=== PATIENT | female | born 1975 | race Caucasian/White ===

== ENCOUNTER 2018-05-22 13:12 | Emergency (ER) | payer OTHER ==
[2018-05-22] MEDS ORDERED: Sodium Chloride 0.9% 2.5 ML Syringe FLUSH PRN (14:55)
[2018-05-22] MEDS ORDERED: Sodium Chloride 0.9% 10 ML Syringe FLUSH PRN (14:55)
[2018-05-22] MEDS ORDERED: Sodium Chloride 0.9% 1,000 ML IV ONE (14:55)
[2018-05-22] MEDS ORDERED: Metoprolol Succinate 50 MG Tab.ER PO ONE (14:59)
--- NOTE | 2018-05-22 15:15 | EDM.PDOC ---
ED HPI GENERAL MEDICAL PROBLEM - General Chief Complaint: Cardiovascular Problem Stated Complaint: BLOOD PRESURE HIGH AND HYPER TENSION Time Seen by Provider: 05/22/18 15:00 Source of Information: Reports: Patient History Limitations: Reports: No Limitations - History of Present Illness INITIAL COMMENTS - FREE TEXT/NARRATIVE: HISTORY AND PHYSICAL: History of present illness: Patient is a 42-year-old female here with complaint of hypertension and headache. He states her blood pressure is about 1 6100 last night and seems morning. His headache is secondary to her blood pressure. She does have a history of migraines and takes Maxalt for these. She is on beta mazin for both her blood pressure and migraine prevention. She reports she was recently switched from atenolol to metoprolol or Dr. Fulton. Patient states headache is on the right side and throbbing. She has photophobia and nausea but denies vomiting, visual disturbances, weakness, confusion, ataxia, fevers, chills. She denies chest pain/pressure, shortness of breath, left arm or jaw pain, diaphoresis, abdominal pain, diarrhea, constipation, or urinary symptoms. Review of systems: As per history of present illness and below otherwise all systems reviewed and negative. Past medical history: As per history of present illness and as reviewed below otherwise noncontributory. Surgical history: As per history of present illness and as reviewed below otherwise noncontributory. Social history: No reported history of drug or alcohol abuse. Family history: As per history of present illness and as reviewed below otherwise noncontributory. Physical exam: General: Patient sitting comfortably in no acute distress and nontoxic appearing HEENT: Atraumatic, normocephalic, pupils reactive, negative for conjunctival pallor or scleral icterus, mucous membranes moist, throat clear, neck supple, nontender, trachea midline. No meningeal signs. Lungs: Clear to auscultation, breath sounds equal bilaterally, chest nontender. Heart: S1S2, regular, negative for clicks, rubs, or overt murmur. Abdomen: Soft, nondistended, nontender. Negative for masses or hepatosplenomegaly. Negative for costovertebral tenderness. Pelvis: Stable nontender. Genitourinary: Deferred. Rectal: Deferred. Extremities: Atraumatic, negative for cords or calf pain. Neurovascular unremarkable. Neuro: Awake, alert, oriented. Cranial nerves II through XII unremarkable. Cerebellum unremarkable. Motor and sensory unremarkable throughout. Exam nonfocal. Notes: 1650 - Patient reports headache 09/03. Diagnostics: None Therapeutics: 1L NS IV 30mg Toradol IV 10mg Reglan IV 4mg Zofran IV 25mg Benadryl IV Metoprolol 50mg PO Prescriptions: None Impression: Hypertension, Migraine Plan: 1. Take regular medications as prescribed 2. Follow up with your primary care provider 3. Return to ED as needed as discussed Definitive disposition and diagnosis as appropriate pending reevaluation and review of above. Head Pain Score (Numeric/FACES): 6 - Related Data Allergies Allergy/AdvReac Type Severity Reaction Status Date / Time ceftazidime pentahydrate Allergy Rash Verified 05/22/18 13:46 [From Fortaz] phenytoin sodium Allergy Rash Verified 05/22/18 13:46 [From Dilantin] phenytoin sodium extended Allergy Rash Verified 05/22/18 13:46 [From Dilantin] sertraline HCl [From Zoloft] Allergy Rash Verified 05/22/18 13:46 Home Meds: Home Meds Levothyroxine [Synthroid] 88 mcg PO ACBREAKFAST 05/04/15 [History] PARoxetine [Paxil] 10 mg PO DAILY 05/04/15 [History] Fenofibrate,Micronized [Fenofibrate] 1 cap PO DAILY 12/15/15 [History] Topiramate [Trokendi Xr] 1 tab PO DAILY 12/15/15 [History] Metoprolol Succinate 50 mg PO DAILY 05/22/18 [History] Norethindrone [Aygestin] 15 mg PO DAILY 05/22/18 [History] Potassium Chloride 10 meq PO DAILY 05/22/18 [History] atorvaSTATin [Lipitor] 20 mg PO DAILY 05/22/18 [History] Past Medical History HEENT History: Reports: Allergic Rhinitis, Hard of Hearing, Impaired Vision Other HEENT History: wears glasses, hearing aids Cardiovascular History: Reports: Arrhythmia, Hypertension Other Cardiovascular History: had intermittent tachycardia following brain surgery, takes blood pressure meds to control it. Respiratory History: Reports: None Gastrointestinal History: Reports: None Genitourinary History: Reports: Renal Calculus NEUROPHYSIOLOGY TECH History: Reports: Musculoskeletal History: Reports: Fibromyalgia, Other (See Below) Other Musculoskeletal History: had FB(glass) removed from foot Neurological History: Reports: Migraines, Other (See Below) Other Neuro History: Brain tumor-meningioma Psychiatric History: Reports: Anxiety, Depression Endocrine/Metabolic History: Reports: Hypothyroidism, Obesity/BMI 30+ Hematologic History: Reports: None Immunologic History: Reports: None Oncologic (Cancer) History: Reports: None Dermatologic History: Reports: None - Infectious Disease History Infectious Disease History: Reports: Chicken Pox, Influenza - Past Surgical History Head Surgeries/Procedures: Reports: None HEENT Surgical History: Reports: Adenoidectomy, Tonsillectomy, Other (See Below) Other HEENT Surgeries/Procedures: ear surgery Cardiovascular Surgical History: Reports: None Respiratory Surgical History: Reports: None GI Surgical History: Reports: Appendectomy, Cholecystectomy Endocrine Surgical History: Reports: None Oncologic Surgical History: Reports: None Social & Family History - Tobacco Use Smoking Status *Q: Never Smoker - Caffeine Use Caffeine Use: Reports: Coffee, Soda, Tea - Recreational Drug Use Recreational Drug Use: No ED ROS GENERAL - Review of Systems Review Of Systems: ROS reveals no pertinent complaints other than HPI. ED EXAM, GENERAL - Physical Exam Exam: See Below (see dictation) Course - Vital Signs Last Recorded V/S: Last Vital Signs Temp 37.0 C 05/22/18 13:41 Pulse 74 05/22/18 15:17 Resp 22 H 05/22/18 13:41 BP 165/84 H 05/22/18 16:07 Pulse Ox 98 05/22/18 13:41 - Orders/Labs/Meds Orders: Active Orders 24 hr Category Date Time Status EKG Documentation Completion [RC] STAT Care 05/22/18 14:55 Active Sodium Chloride 0.9% [Saline Flush] Med 05/22/18 14:55 Active 10 ml FLUSH ASDIRECTED PRN Sodium Chloride 0.9% [Saline Flush] Med 05/22/18 14:55 Active 2.5 ml FLUSH ASDIRECTED PRN Saline Lock Insert [OM.PC] Stat Oth 05/22/18 14:55 Ordered Medication Orders Sodium Chloride (Saline Flush) 10 ml FLUSH ASDIRECTED PRN PRN Reason: Keep Vein Open Last Admin: 05/22/18 15:17 Dose: 10 ml Sodium Chloride (Saline Flush) 2.5 ml FLUSH ASDIRECTED PRN PRN Reason: Keep Vein Open Last Admin: 05/22/18 15:17 Dose: 2.5 ml Labs: Laboratory Tests 05/22/18 05/22/18 Range/Units 15:14 15:14 WBC 9.54 (4.0-11.0) K/uL RBC 5.00 (4.30-5.90) M/uL Hgb 15.1 (12.0-16.0) g/dL Hct 44.9 (36.0-46.0) % MCV 89.8 (80.0-98.0) fL MCH 30.2 (27.0-32.0) pg MCHC 33.6 (31.0-37.0) g/dL RDW Std Deviation 45.3 (28.0-62.0) fl RDW Coeff of Queenie 14 (11.0-15.0) % Plt Count 224 (150-400) K/uL MPV 11.90 (7.40-12.00) fL Neut % (Auto) 53.4 (48.0-80.0) % Lymph % (Auto) 34.0 (16.0-40.0) % Wetzel % (Auto) 10.5 (0.0-15.0) % Eos % (Auto) 1.8 (0.0-7.0) % Baso % (Auto) 0.3 (0.0-1.5) % Neut # (Auto) 5.1 (1.4-5.7) K/uL Lymph # (Auto) 3.2 H (0.6-2.4) K/uL Wetzel # (Auto) 1.0 H (0.0-0.8) K/uL Eos # (Auto) 0.2 (0.0-0.7) K/uL Baso # (Auto) 0.0 (0.0-0.1) K/uL Nucleated RBC % 0.0 /100WBC Nucleated RBCs # 0 K/uL Sodium 141 (136-145) mmol/L Potassium 3.2 L (3.5-5.1) mmol/L Chloride 109 H (98-107) mmol/L Carbon Dioxide 23.0 (21.0-32.0) mmol/L BUN 16 (7.0-18.0) mg/dL Creatinine 1.0 (0.6-1.0) mg/dL Est Cr Clr Drug Dosing 60.00 mL/min Estimated GFR (MDRD) > 60.0 ml/min Glucose 95 (74-106) mg/dL Calcium 9.9 (8.5-10.1) mg/dL Total Bilirubin 0.1 L (0.2-1.0) mg/dL AST 35 (15-37) IU/L ALT 34 (14-63) IU/L Alkaline Phosphatase 41 L (46-116) U/L Troponin I < 0.050 (0.000-0.056) ng/mL Total Protein 7.6 (6.4-8.2) g/dL Albumin 3.7 (3.4-5.0) g/dL Globulin 3.9 H (2.0-3.5) g/dL Albumin/Globulin Ratio 1.0 L (1.3-2.8) Meds: Medications Generic Name Dose Route Start Last Admin Trade Name Freq PRN Reason Stop Dose Admin Sodium Chloride 10 ml 05/22/18 14:55 05/22/18 15:17 Saline Flush FLUSH 10 ml ASDIRECTED PRN Administration Keep Vein Open Sodium Chloride 2.5 ml 05/22/18 14:55 05/22/18 15:17 Saline Flush FLUSH 2.5 ml ASDIRECTED PRN Administration Keep Vein Open Discontinued Medications Generic Name Dose Route Start Last Admin Trade Name Freq PRN Reason Stop Dose Admin Diphenhydramine HCl 25 mg 05/22/18 16:13 05/22/18 16:28 Benadryl IVPUSH 05/22/18 16:14 25 mg ONETIME ONE Administration Sodium Chloride 1,000 mls @ 999 mls/hr 05/22/18 14:55 05/22/18 15:16 Normal Saline IV 05/22/18 15:55 999 mls/hr STAT ONE Administration Ketorolac Tromethamine 30 mg 05/22/18 16:13 05/22/18 16:28 Toradol IVPUSH 05/22/18 16:14 30 mg ONETIME ONE Administration Metoclopramide HCl 10 mg 05/22/18 16:13 05/22/18 16:28 Reglan IV 05/22/18 16:14 10 mg ONETIME ONE Administration Metoprolol Succinate 50 mg 05/22/18 14:59 05/22/18 15:17 Toprol Xl PO 05/22/18 15:00 50 mg ONETIME ONE Administration Ondansetron HCl 4 mg 05/22/18 16:13 05/22/18 16:29 Zofran IVPUSH 05/22/18 16:14 4 mg ONETIME ONE Administration Departure - Departure Time of Disposition: 16:57 Disposition: Home, Self-Care 01 Clinical Impression: Hypertension, Migraine aura without headache Referrals: PCP,None [Primary Care Provider] - Forms: ED Department Discharge Additional Instructions: The following information is given to patients seen in the emergency department who are being discharged to home. This information is to outline your options for follow-up care. We provide all patients seen in our emergency department with a follow-up referral. The need for follow-up, as well as the timing and circumstances, are variable depending upon the specifics of your emergency department visit. If you don't have a primary care physician on staff, we will provide you with a referral. We always advise you to contact your personal physician following an emergency department visit to inform them of the circumstance of the visit and for follow-up with them and/or the need for any referrals to a consulting specialist. The emergency department will also refer you to a specialist when appropriate. This referral assures that you have the opportunity for follow-up care with a specialist. All of these measure are taken in an effort to provide you with optimal care, which includes your follow-up. Under all circumstances we always encourage you to contact your private physician who remains a resource for coordinating your care. When calling for follow-up care, please make the office aware that this follow-up is from your recent emergency room visit. If for any reason you are refused follow-up, please contact the [facility] Emergency Department at and asked to speak to the emergency department charge nurse. [facility] [address] [place] [id number] 1. Take medications as directed 2. Follow up with primary care provider 3. Return to ED as needed as discussed - My Orders Last 24 Hours: My Active Orders 05/22/18 14:55 EKG Documentation Completion [RC] STAT Sodium Chloride 0.9% [Saline Flush] 10 ml FLUSH ASDIRECTED PRN Sodium Chloride 0.9% [Saline Flush] 2.5 ml FLUSH ASDIRECTED PRN Saline Lock Insert [OM.PC] Stat - Assessment/Plan Last 24 Hours: My Active Orders 05/22/18 14:55 EKG Documentation Completion [RC] STAT Sodium Chloride 0.9% [Saline Flush] 10 ml FLUSH ASDIRECTED PRN Sodium Chloride 0.9% [Saline Flush] 2.5 ml FLUSH ASDIRECTED PRN Saline Lock Insert [OM.PC] Stat
[2018-05-22 16:00] LABS: CHLORIDE,CL 109 mmol/L (98-107); SODIUM,NA 141 mmol/L (136-145)
[2018-05-22] MEDS ORDERED: Ketorolac 30 MG/ML SDV IVPUSH ONE (16:13)
[2018-05-22] MEDS ORDERED: diphenhydrAMINE 50 MG/ML SDV IVPUSH ONE (16:13)
[2018-05-22] MEDS ORDERED: Ondansetron 4 MG/2 ML SDV IVPUSH ONE (16:13)
[2018-05-22] MEDS ORDERED: Metoclopramide 10 MG/2 ML SDV IV ONE (16:13)
[2018-05-22 17:15] VITALS: BP 159/101
== END 2018-05-22 17:15 | disposition home or self-care (01) ==
LOC: MW.ED 13:12
DX: G43.109 Migraine with aura, not intractable, without status migrainosus (principal); I10 Essential (primary) hypertension; E03.9 Hypothyroidism, unspecified; E66.9 Obesity, unspecified; Z88.8 Allergy status to other drugs, medicaments and biological substances; Z79.899 Other long term (current) drug therapy
CPT/HCPCS: 36415; 80053; 84484; 85025; 93005; 96361; 96374; 96375; 99283; A9270; J1200; J1885; J2405; J2765; J7040

== ENCOUNTER 2020-12-15 06:06 | Day surgery (SDC) | payer OTHER ==
[2020-12-15 06:50] LABS: CARBON DIOXIDE,CO2 22.9 mmol/L (21.0-32.0); POTASSIUM,K 4.2 mmol/L (3.5-5.1)
--- NOTE | 2020-12-15 07:14 | PCM.PREANE ---
Preanesthetic Assessment - Anesthesia/Transfusion/Family Hx Anesthesia History: Prior Anesthesia Without Reaction Family History of Anesthesia Reaction: No Transfusion History: No Prior Transfusion(s) - Review of Systems General: No Symptoms Pulmonary: No Symptoms Cardiovascular: No Symptoms Gastrointestinal: No Symptoms Neurological: No Symptoms Other: Reports: None - Physical Assessment NPO Status Date: 12/15/20 NPO Status Time: 00:01 Vital Signs: Last Vital Signs Temp 98.4 F 12/15/20 06:24 Pulse 67 12/15/20 06:24 Resp 16 12/15/20 06:24 BP 120/71 12/15/20 06:24 Pulse Ox 96 12/15/20 06:24 Height: 5 ft 4 in Weight: 231 lb ASA Class: 2 Mental Status: Alert & Oriented x3 Airway Class: Mallampati = 2 Dentition: Reports: Normal Dentition ROM/Head Extension: Full Lungs: Clear to Auscultation, Normal Respiratory Effort Cardiovascular: Regular Rate, Regular Rhythm - Lab Values: Laboratory Last Values Sodium 143 mmol/L (136-145) 12/15/20 06:24 Potassium 4.2 mmol/L (3.5-5.1) 12/15/20 06:24 Chloride 108 mmol/L (98-107) H 12/15/20 06:24 Carbon Dioxide 22.9 mmol/L (21.0-32.0) 12/15/20 06:24 BUN 15 mg/dL (7.0-18.0) 12/15/20 06:24 Creatinine 1.0 mg/dL (0.6-1.0) 12/15/20 06:24 Est Cr Clr Drug Dosing 60.70 mL/min 12/15/20 06:24 Estimated GFR (MDRD) 59.7 ml/min 12/15/20 06:24 Glucose 106 mg/dL (74-106) 12/15/20 06:24 Calcium 9.0 mg/dL (8.5-10.1) 12/15/20 06:24 HCG, Qual NEGATIVE (NEG) 12/15/20 06:24 - Allergies Allergies/Adverse Reactions: Allergies Allergy/AdvReac Type Severity Reaction Status Date / Time ceftazidime pentahydrate Allergy Rash Verified 12/15/20 06:32 [From Fortaz] phenytoin sodium Allergy Rash Verified 04/23/21 06:32 [From Dilantin] phenytoin sodium extended Allergy Rash Verified 12/15/20 06:32 [From Dilantin] sertraline HCl [From Zoloft] Allergy Rash Verified 12/15/20 06:32 - Anesthesia Plan Pre-Op Medication Ordered: None - Acknowledgements Anesthesia Type Planned: General Anesthesia Pt an Appropriate Candidate for the Planned Anesthesia: Yes Alternatives and Risks of Anesthesia Discussed w Pt/Guardian: Yes Pt/Guardian Understands and Agrees with Anesthesia Plan: Yes Additional Comments: npo after mn htn no cv problems asthma rarely uses inhalers depression headaches tob none etoh rare 25 years ago resection L sided meningioma without residual par no questions PreAnesthesia Questionnaire HEENT History: Reports: Allergic Rhinitis, Hard of Hearing, Impaired Vision Other HEENT History: wears glasses, hearing aids Cardiovascular History: Reports: Arrhythmia, High Cholesterol, Hypertension Other Cardiovascular History: had intermittent tachycardia following brain surgery, takes blood pressure meds to control it. Respiratory History: Reports: Asthma Other Respiratory History: has prescribed inhaler to use as needed, but has not used in over 6 months Gastrointestinal History: Reports: None Genitourinary History: Reports: Renal Calculus ROUGE SIFTER History: Reports: Dysfunctional Uterine Bleeding, Musculoskeletal History: Reports: Fibromyalgia, Other (See Below) Other Musculoskeletal History: had FB(glass) removed from foot, Neurological History: Reports: Migraines, Other (See Below) Other Neuro History: Brain tumor-meningioma Psychiatric History: Reports: Anxiety, Depression Endocrine/Metabolic History: Reports: Hypothyroidism, Obesity/BMI 30+ Hematologic History: Reports: None Immunologic History: Reports: None Oncologic (Cancer) History: Reports: None Dermatologic History: Reports: None - Infectious Disease History Infectious Disease History: Reports: Chicken Pox, Influenza - Past Surgical History Head Surgeries/Procedures: Reports: Other (See Below) HEENT Surgical History: Reports: Adenoidectomy, Oral Surgery, Tonsillectomy, Other (See Below) Other HEENT Surgeries/Procedures: ear surgery Cardiovascular Surgical History: Reports: None Respiratory Surgical History: Reports: None GI Surgical History: Reports: Appendectomy, Cholecystectomy Female Surgical History: Reports: Tubal Ligation, Other (See Below) Other Female Surgeries/Procedures: LAPROSCOPY Endocrine Surgical History: Reports: None Neurological Surgical History: Reports: Other (See Below) Other Neurological Surgeries/Procedures: removal of brain tumor (non-malignant) Musculoskeletal Surgical History: Reports: Other (See Below) Other Musculoskeletal Surgeries/Procedures:: excision of ganglion cyst Oncologic Surgical History: Reports: None - SUBSTANCE USE Tobacco Use Status *Q: Never Tobacco User Recreational Drug Use History: No - HOME MEDS Home Medications: Home Meds Levothyroxine [Synthroid] 88 mcg PO BEDTIME 05/04/15 [History] PARoxetine [Paxil] 20 mg PO BEDTIME 05/04/15 [History] Fenofibrate,Micronized [Fenofibrate] 160 mg PO BEDTIME 12/15/15 [History] Topiramate [Trokendi Xr] 100 mg PO BEDTIME 12/15/15 [History] Metoprolol Succinate 100 mg PO BEDTIME 05/22/18 [History] Norethindrone [Aygestin] 10 mg PO BEDTIME 05/22/18 [History] atorvaSTATin [Lipitor] 20 mg PO BEDTIME 05/22/18 [History] Fluticasone/Salmeterol [Advair 100-50] 1 inhalation INH DAILY PRN 12/12/20 [History] Gabapentin [Neurontin] 600 mg PO BEDTIME 12/12/20 [History] amLODIPine [Norvasc] 5 mg PO BEDTIME 12/12/20 [History] medroxyPROGESTERone [Provera] 10 mg PO BEDTIME 12/12/20 [History]
[2020-12-15] MEDS ORDERED: Propofol 200 MG/20 ML SDV ONE ×2 (07:42→08:12)
[2020-12-15] MEDS ORDERED: fentaNYL 100 MCG/2 ML SDV ONE ×2 (07:42→08:18)
[2020-12-15] MEDS ORDERED: Ondansetron 4 MG/2 ML SDV ONE (07:42)
[2020-12-15] MEDS ORDERED: Midazolam 1 MG/ML 2 ML SDV ONE (07:42)
[2020-12-15] MEDS ORDERED: Dexamethasone 4 MG/ML 5 ML MDV ONE (07:43)
[2020-12-15] MEDS ORDERED: Glycopyrrolate 0.2 MG/ML SDV ONE (07:43)
--- NOTE | 2020-12-15 09:03 | PCM.POSTAN ---
POST ANESTHESIA ASSESSMENT - MENTAL STATUS Mental Status: Alert (no anesthetic problems), Oriented - VITAL SIGNS Vital Signs: Last Vital Signs Temp 98.6 F 12/15/20 08:47 Pulse 62 12/15/20 08:57 Resp 11 L 12/15/20 08:57 BP 134/80 12/15/20 08:57 Pulse Ox 99 12/15/20 08:57 - RESPIRATORY Respiratory Status: Respiratory Rate WNL, Airway Patent, O2 Saturation Stable - CARDIOVASCULAR CV Status: Pulse Rate WNL, Blood Pressure Stable - GASTROINTESTINAL GI Status: No Symptoms - POST OP HYDRATION Hydration Status: Adequate & Stable
[2020-12-15] MEDS ORDERED: Morphine 4 MG/ML Syringe IVPUSH PRN (09:17)
[2020-12-15] MEDS ORDERED: Ondansetron 4 MG/2 ML SDV IVPUSH PRN (09:17)
[2020-12-15] MEDS ORDERED: Ketorolac 30 MG/ML SDV IVPUSH ONE (09:17)
[2020-12-15] MEDS ORDERED: Acetaminophen/oxyCODONE 325-5 MG Tab PO PRN ×2 (09:17)
[2020-12-15] MEDS ORDERED: Promethazine 25 MG/ML SDV IM PRN (09:17)
--- NOTE | 2020-12-15 09:23 | PCM.OPNOTE ---
- General Post-Op/Procedure Note Date of Surgery/Procedure: 12/15/20 Operative Procedure(s): Operative Hysteroscopy with removal of endometrial lesion Findings: Normal sized anteverted uterus Uterus with small endometrial lesion toward to the right of the cornua Pre Op Diagnosis: Abnormal uterine bleeding secondary to endometrial polyp Post-Op Diagnosis: same Anesthesia Technique: General ET Tube Primary Surgeon: Mary Ellen Fields Pathology: endometrial lesion EBL in mLs: 10 Complications: None Condition: Good Free Text/Narrative:: Intake & Output 12/14/20 12/15/20 12/15/20 22:59 06:59 14:59 Intake Total 1050 Balance 1050 Fluid deficit - 400
--- NOTE | 2020-12-15 09:34 | PCM48HPAN ---
Post Anesthesia Note - EVALUATION WITHIN 48HRS OF ANESTHETIC Vital Signs in Normal Range: Yes Patient Participated in Evaluation: Yes Respiratory Function Stable: Yes Airway Patent: Yes Cardiovascular Function Stable: Yes Hydration Status Stable: Yes Pain Control Satisfactory: Yes Nausea and Vomiting Control Satisfactory: Yes Mental Status Recovered: Yes Vital Signs: Last Vital Signs Temp 97.3 F 12/15/20 09:05 Pulse 62 12/15/20 09:20 Resp 16 12/15/20 09:20 BP 124/70 12/15/20 09:20 Pulse Ox 97 12/15/20 09:20
[2020-12-15 09:37] VITALS: BP 125/72; PULSE 55
[2020-12-15] MEDS ORDERED: Ketorolac 30 MG/ML SDV IVPUSH PRN (15:15)
--- NOTE | 2020-12-18 11:23 | OR ---
SURGEON: LARRY SOW DATE OF PROCEDURE: 12/15/2020 PREOPERATIVE DIAGNOSES: A 45-year-old para 3 with abnormal uterine bleeding secondary to endometrial polyp. POSTOPERATIVE DIAGNOSES: A 45-year-old para 3 with abnormal uterine bleeding secondary to endometrial polyp. PROCEDURE: Operative hysteroscopy with MyoSure and removal of endometrial polyp. PATHOLOGY: Endometrial lesion. ANESTHESIA: General. FLUID DEFICIT: 400 NS INTRAVENOUS FLUIDS: 900. COMPLICATIONS: None. ESTIMATED BLOOD LOSS: About 10 mL. NOTES AND FINDINGS: Examination under anesthesia showed a normal-sized anteverted uterus. Hysteroscopy showed 1-2 cm endometrial polyp in the uterine cavity BRIEF HISTORY ABOUT THE PATIENT: She is a 45-year-old, para 3 who was referred for abnormal uterine bleeding. She had an EMB done, which was negative, but patient had been having prolonged heavy periods. As a result, a saline ultrasound was done, which showed some projection into the endometrial cavity suggestive of an endometrial polyp. As a result of this a hysteroscopic removal of endometrial polyp was recommended. She was explained the risk , benefit and alternative.The patient was consented for hysteroscopic removal of the endometrial lesion. DESCRIPTION OF PROCEDURE: The patient was taken to the operating room where general anesthesia was performed without difficulty. She was prepared and draped in the dorsal lithotomy position with Giovanni stirrups. The cervix was properly prepped with betadine. The speculum was placed into the cervix. The Allis clamp was used to grasp the anterior lip of the cervix. The cervix was dilated to accommodate the 10 mm MyoSure hysteroscope. The hysteroscope was placed in. The lesion was noted in the fundal region close to the tubal ostia, and this was removed with MyoSure hysteroscope without any difficulty after which the MyoSure hysteroscope was withdrawn. A fractional D and C was done with a sharp curette and specimen was sent for pathology. The patient tolerated the procedure well. All instrument and pad counts were correct x2. DIEGO / OLIVIA /[id number] MTDD
== END 2020-12-15 09:58 | disposition home or self-care (01) ==
LOC: MW.SDS 06:06
PROVIDERS: ATTEND Obstetrics & Gynecology
DX: N84.0 Polyp of corpus uteri (principal); E03.9 Hypothyroidism, unspecified; E78.00 Pure hypercholesterolemia, unspecified; I10 Essential (primary) hypertension; E66.9 Obesity, unspecified; J45.909 Unspecified asthma, uncomplicated; Z79.890 Hormone replacement therapy; Z90.49 Acquired absence of other specified parts of digestive tract; Z82.49 Family history of ischemic heart disease and other diseases of the circulatory system; Z88.8 Allergy status to other drugs, medicaments and biological substances; Z01.812 Encounter for preprocedural laboratory examination; Z20.822 Contact with and (suspected) exposure to COVID-19; Z79.899 Other long term (current) drug therapy; Z68.39 Body mass index [BMI] 39.0-39.9, adult
CPT/HCPCS: 36415; 58558; 80048; 84703; 87635; 88305; J0131; J1100; J2250; J2704; J3010; J3490; 00952; J2405; U0002

== ENCOUNTER 2021-03-09 06:43 | Day surgery (SDC) | payer OTHER ==
[2021-03-09] MEDS ORDERED: Scopolamine 1.5 MG Transdermal Patch ONE (06:56)
[2021-03-09] MEDS ORDERED: fentaNYL 250 MCG/5 ML SDV ONE (07:04)
[2021-03-09] MEDS ORDERED: Propofol 200 MG/20 ML SDV ONE (07:04)
[2021-03-09] MEDS ORDERED: Midazolam 1 MG/ML 2 ML SDV ONE (07:04)
[2021-03-09] MEDS ORDERED: Ondansetron 4 MG/2 ML SDV ONE (07:05)
[2021-03-09] MEDS ORDERED: Sugammadex Sodium 200 MG/2 ML VIAL ONE (07:05)
[2021-03-09] MEDS ORDERED: Ketorolac 30 MG/ML SDV ONE (07:05)
[2021-03-09] MEDS ORDERED: Glycopyrrolate 0.2 MG/ML SDV ONE (07:05)
[2021-03-09] MEDS ORDERED: Lidocaine 2% 5 ML SDV ONE (07:05)
[2021-03-09] MEDS ORDERED: Rocuronium Bromide 50 MG/5 ML Syringe ONE ×2 (07:05→08:32)
[2021-03-09] MEDS ORDERED: Fluorescein 5 ML Vial ONE (07:19)
[2021-03-09] MEDS ORDERED: Methylene Blue 50 MG/10 ML Ampule ONE (07:20)
[2021-03-09] MEDS ORDERED: Bupivacaine 0.25% 10 ML SDV ONE (07:20)
[2021-03-09] MEDS ORDERED: ceFAZolin 1 GM Vial ONE (07:38)
[2021-03-09] MEDS ORDERED: Sodium Chloride 0.9% 20 ML ONE (07:38)
[2021-03-09] MEDS ORDERED: Vasopressin 20 Units/1 ML MDV ONE (08:15)
[2021-03-09] MEDS ORDERED: Furosemide 40 MG/4 ML VIAL ONE (08:19)
[2021-03-09] MEDS ORDERED: HYDROmorphone 2 MG/ML Syringe ONE (09:03)
[2021-03-09] MEDS ORDERED: Morphine 2 MG/ML SYRINGE IVPUSH PRN (09:37)
[2021-03-09] MEDS ORDERED: Naloxone 0.4 MG/ML Syringe IVPUSH PRN (09:37)
[2021-03-09] MEDS ORDERED: fentaNYL 100 MCG/2 ML SDV IVPUSH PRN (09:37)
[2021-03-09] MEDS ORDERED: Ondansetron 4 MG/2 ML SDV IVPUSH PRN ×2 (09:37→11:38)
[2021-03-09] MEDS ORDERED: Metoclopramide 10 MG/2 ML SDV IVPUSH PRN (09:37)
[2021-03-09] MEDS ORDERED: HYDROmorphone 2 MG/ML Syringe IVPUSH PRN (09:37)
[2021-03-09] MEDS ORDERED: Albuterol 0.083% 2.5 MG/3 ML Neb Soln NEB PRN (09:37)
[2021-03-09] MEDS ORDERED: Acetaminophen 1,000 MG in Premix Bag 1 BAG IV ONE (09:38)
--- NOTE | 2021-03-09 09:40 | PCM.PREANE ---
Preanesthetic Assessment - Anesthesia/Transfusion/Family Hx Anesthesia History: Prior Anesthesia Without Reaction Transfusion History: No Prior Transfusion(s) - Review of Systems General: No Symptoms Pulmonary: No Symptoms Cardiovascular: No Symptoms Gastrointestinal: No Symptoms Neurological: No Symptoms Other: Reports: None - Physical Assessment NPO Status Date: 03/09/21 NPO Status Time: 00:00 Vital Signs: Last Vital Signs Temp 97.3 F 03/09/21 06:56 Pulse 60 03/09/21 06:56 Resp 16 03/09/21 06:56 BP 117/72 03/09/21 06:56 Pulse Ox 95 03/09/21 06:56 Height: 5 ft 3.5 in Weight: 220 lb ASA Class: 3 Mental Status: Alert & Oriented x3 Airway Class: Mallampati = 2 Dentition: Reports: Normal Dentition Thyro-Mental Finger Breadths: 3 Mouth Opening Finger Breadths: 3 ROM/Head Extension: Full Lungs: Clear to Auscultation, Normal Respiratory Effort Cardiovascular: Regular Rate, Regular Rhythm - Lab Values: Laboratory Last Values WBC 5.59 K/uL (4.0-11.0) 03/09/21 06:56 RBC 4.86 M/uL (4.30-5.90) 03/09/21 06:56 Hgb 13.0 g/dL (12.0-16.0) 03/09/21 06:56 Hct 40.9 % (36.0-46.0) 03/09/21 06:56 MCV 84.2 fL (80.0-98.0) 03/09/21 06:56 MCH 26.7 pg (27.0-32.0) L 03/09/21 06:56 MCHC 31.8 g/dL (31.0-37.0) 03/09/21 06:56 RDW Std Deviation 44.3 fl (28.0-62.0) 03/09/21 06:56 RDW Coeff of [place] 15 % (11.0-15.0) 03/09/21 06:56 Plt Count 253 K/uL (150-400) 03/09/21 06:56 MPV 11.60 fL (7.40-12.00) 03/09/21 06:56 Neut % (Auto) 54.8 % (48.0-80.0) 03/09/21 06:56 Lymph % (Auto) 32.7 % (16.0-40.0) 03/09/21 06:56 [place] % (Auto) 8.8 % (0.0-15.0) 03/09/21 06:56 Eos % (Auto) 3.2 % (0.0-7.0) 03/09/21 06:56 Baso % (Auto) 0.5 % (0.0-1.5) 03/09/21 06:56 Neut # (Auto) 3.1 K/uL (1.4-5.7) 03/09/21 06:56 Lymph # (Auto) 1.8 K/uL (0.6-2.4) 03/09/21 06:56 [place] # (Auto) 0.5 K/uL (0.0-0.8) 03/09/21 06:56 Eos # (Auto) 0.2 K/uL (0.0-0.7) 03/09/21 06:56 Baso # (Auto) 0.0 K/uL (0.0-0.1) 03/09/21 06:56 Nucleated RBC % 0.0 /100WBC 03/09/21 06:56 Nucleated RBCs # 0 K/uL 03/09/21 06:56 HCG, Qual NEGATIVE (NEG) 03/09/21 06:56 - Allergies Allergies/Adverse Reactions: Allergies Allergy/AdvReac Type Severity Reaction Status Date / Time ceftazidime pentahydrate Allergy Rash Verified 03/09/21 07:02 [From Fortaz] phenytoin sodium Allergy Rash Verified 03/09/21 07:02 [From Dilantin] phenytoin sodium extended Allergy Rash Verified 03/09/21 07:02 [From Dilantin] sertraline HCl [From Zoloft] Allergy Rash Verified 03/09/21 07:02 - Acknowledgements Anesthesia Type Planned: General Anesthesia Pt an Appropriate Candidate for the Planned Anesthesia: Yes Alternatives and Risks of Anesthesia Discussed w Pt/Guardian: Yes Pt/Guardian Understands and Agrees with Anesthesia Plan: Yes PreAnesthesia Questionnaire HEENT History: Reports: Allergic Rhinitis, Hard of Hearing, Impaired Vision Other HEENT History: wears glasses, hearing aids Cardiovascular History: Reports: Arrhythmia, High Cholesterol, Hypertension Other Cardiovascular History: had intermittent tachycardia following brain surgery, takes blood pressure meds to control it. Respiratory History: Reports: Asthma Other Respiratory History: has prescribed inhaler to use as needed, but has not used in over 6 months Gastrointestinal History: Reports: None Genitourinary History: Reports: Renal Calculus Other Genitourinary History: hx of passing kidney stone during [employer] History: Reports: Dysfunctional Uterine Bleeding, Musculoskeletal History: Reports: Fibromyalgia, Other (See Below) Other Musculoskeletal History: had FB(glass) removed from foot, Neurological History: Reports: Migraines, Other (See Below) Other Neuro History: Brain tumor-meningioma Psychiatric History: Reports: Anxiety Endocrine/Metabolic History: Reports: Hypothyroidism, Obesity/BMI 30+ Hematologic History: Reports: None Immunologic History: Reports: None Oncologic (Cancer) History: Reports: None Dermatologic History: Reports: None - Infectious Disease History Infectious Disease History: Reports: Chicken Pox, Influenza - Past Surgical History Head Surgeries/Procedures: Reports: Other (See Below) HEENT Surgical History: Reports: Adenoidectomy, Oral Surgery, Tonsillectomy, Other (See Below) Other HEENT Surgeries/Procedures: ear surgery Cardiovascular Surgical History: Reports: None Respiratory Surgical History: Reports: None GI Surgical History: Reports: Appendectomy, Cholecystectomy Female Surgical History: Reports: Tubal Ligation, Other (See Below) Other Female Surgeries/Procedures: LAPROSCOPY, Hysteroscopy with polyp removal Endocrine Surgical History: Reports: None Neurological Surgical History: Reports: Other (See Below) Other Neurological Surgeries/Procedures: removal of brain tumor (non-malignant)- has screws in skull Musculoskeletal Surgical History: Reports: Ganglion Cyst Oncologic Surgical History: Reports: None - SUBSTANCE USE Tobacco Use Status *Q: Never Tobacco User Recreational Drug Use History: No - HOME MEDS Home Medications: Home Meds Levothyroxine [Synthroid] 88 mcg PO BEDTIME 05/04/15 [History] PARoxetine [Paxil] 20 mg PO BEDTIME 05/04/15 [History] Topiramate [Trokendi Xr] 100 mg PO BEDTIME 12/15/15 [History] Metoprolol Succinate 100 mg PO BEDTIME 05/22/18 [History] Norethindrone [Aygestin] 10 mg PO BEDTIME 05/22/18 [History] atorvaSTATin [Lipitor] 20 mg PO BEDTIME 05/22/18 [History] Fluticasone/Salmeterol [Advair 100-50] 1 inhalation INH DAILY PRN 12/12/20 [History] Gabapentin [Neurontin] 600 mg PO BEDTIME 12/12/20 [History] amLODIPine [Norvasc] 5 mg PO BEDTIME 12/12/20 [History] medroxyPROGESTERone [Provera] 10 mg PO BEDTIME 12/12/20 [History] - CURRENT (IN HOUSE) MEDS Current Meds: Current Medications Albuterol (Albuterol 0.083% 2.5 Mg/3 Ml Neb Soln) 2.5 mg NEB ONETIME PRN PRN Reason: Wheezing Droperidol (Droperidol 5 Mg/2 Ml Sdv) 0.625 mg IVPUSH ONETIME PRN PRN Reason: Nausea/Vomiting Fentanyl (Fentanyl 100 Mcg/2 Ml Sdv) 50 mcg IVPUSH Q5M PRN PRN Reason: Pain (mild 1-3) Hydromorphone HCl (Hydromorphone 2 Mg/Ml Syringe) 1 mg IVPUSH Q10M PRN PRN Reason: Pain (moderate 4-6) Acetaminophen 1,000 mg/ Premix 100 mls @ 400 mls/hr IV NOW ONE Stop: 03/09/21 09:52 Metoclopramide HCl (Metoclopramide 10 Mg/2 Ml Sdv) 10 mg IVPUSH ONETIME PRN PRN Reason: Nausea/Vomiting Morphine Sulfate (Morphine 10 Mg/Ml Syringe) 2 mg IVPUSH Q10M PRN PRN Reason: Pain (severe 7-10) Naloxone HCl (Naloxone 0.4 Mg/Ml Syringe) 0.1 mg IVPUSH ASDIRECTED PRN PRN Reason: Respiratory Depression Ondansetron HCl (Ondansetron 4 Mg/2 Ml Sdv) 4 mg IVPUSH ONETIME PRN PRN Reason: Nausea/Vomiting Discontinued Medications Bupivacaine HCl (Bupivacaine 0.25% 10 Ml Sdv) Confirm Administered Dose 20 ml .ROUTE .ST[facility]-MED ONE Stop: 03/09/21 07:21 Cefazolin Sodium (Cefazolin 1 Gm Vial) Confirm Administered Dose 2 gm .ROUTE .STK-MED ONE Stop: 03/09/21 07:39 Fentanyl (Fentanyl 250 Mcg/5 Ml Sdv) Confirm Administered Dose 250 mcg .ROUTE .STK-MED ONE Stop: 03/09/21 07:05 Fluorescein Sodium (Fluorescein 5 Ml Vial) Confirm Administered Dose 5 ml .ROUTE .[facility] ONE Stop: 03/09/21 07:20 Furosemide (Furosemide 40 Mg/4 Ml Vial) Confirm Administered Dose 40 mg .ROUTE .[facility] ONE Stop: 03/09/21 08:20 Glycopyrrolate (Glycopyrrolate 0.2 Mg/Ml Sdv) Confirm Administered Dose 0.2 mg .ROUTE .[facility] ONE Stop: 03/09/21 07:06 Hydromorphone HCl (Hydromorphone 2 Mg/Ml Syringe) Confirm Administered Dose 2 mg .ROUTE .[facility] ONE Stop: 03/09/21 09:04 Sodium Chloride (Normal Saline) Confirm Administered Dose 20 mls @ as directed .ROUTE .[facility] ONE Stop: 03/09/21 07:39 Ketorolac Tromethamine (Ketorolac 30 Mg/Ml Sdv) Confirm Administered Dose 30 mg .ROUTE .[facility] ONE Stop: 03/09/21 07:06 Lidocaine (Lidocaine 2% 5 Ml Sdv) Confirm Administered Dose 5 ml .ROUTE .[facility] ONE Stop: 03/09/21 07:06 Methylene Blue (Methylene Blue 50 Mg/10 Ml Ampule) Confirm Administered Dose 50 mg .ROUTE .[facility] ONE Stop: 03/09/21 07:21 Midazolam HCl (Midazolam 1 Mg/Ml 2 Ml Sdv) Confirm Administered Dose 2 mg .ROUTE .[facility] ONE Stop: 03/09/21 07:05 Miscellaneous Medication (Phenylephrine Hcl In 0.9% Nacl 1 Mg/10 Ml Syringe) Confirm Administered Dose 1 mg .ROUTE .[facility] ONE Stop: 03/09/21 08:10 Ondansetron HCl (Ondansetron 4 Mg/2 Ml Sdv) Confirm Administered Dose 4 mg .ROUTE .[facility] ONE Stop: 03/09/21 07:06 Propofol (Propofol 200 Mg/20 Ml Sdv) Confirm Administered Dose 200 mg .ROUTE .[facility] ONE Stop: 03/09/21 07:05 Rocuronium [place] (Rocuronium [place] 50 Mg/5 Ml Syringe) Confirm Administered Dose 50 mg .ROUTE .[facility] ONE Stop: 03/09/21 07:06 Rocuronium [place] (Rocuronium [place] 50 Mg/5 Ml Syringe) Confirm Administered Dose 50 mg .ROUTE .STK-MED ONE Stop: 03/09/21 08:33 Scopolamine (Scopolamine 1.5 Mg Transdermal Patch) Confirm Administered Dose 1.5 mg .ROUTE .STK-MED ONE Stop: 03/09/21 06:57 Sugammadex Sodium (Sugammadex Sodium 200 Mg/2 Ml Vial) Confirm Administered Dose 200 mg .ROUTE .STK-MED ONE Stop: 03/09/21 07:06 Vasopressin (Vasopressin 20 Units/1 Ml Mdv) Confirm Administered Dose 20 units .ROUTE .STK-MED ONE Stop: 03/09/21 08:16
--- NOTE | 2021-03-09 11:28 | PCM.POSTAN ---
POST ANESTHESIA ASSESSMENT - MENTAL STATUS Mental Status: Somnolent - VITAL SIGNS Vital Signs: Last Vital Signs Temp 97.3 F 03/09/21 06:56 Pulse 60 03/09/21 06:56 Resp 16 03/09/21 06:56 BP 117/72 03/09/21 06:56 Pulse Ox 95 03/09/21 06:56 - RESPIRATORY Respiratory Status: Respiratory Rate WNL, Airway Patent, O2 Saturation Stable - CARDIOVASCULAR CV Status: Pulse Rate WNL, Blood Pressure Stable - GASTROINTESTINAL GI Status: No Symptoms - POST OP HYDRATION Hydration Status: Adequate & Stable
--- NOTE | 2021-03-09 11:28 | PCM48HPAN ---
Post Anesthesia Note - EVALUATION WITHIN 48HRS OF ANESTHETIC Vital Signs in Normal Range: Yes Patient Participated in Evaluation: Yes Respiratory Function Stable: Yes Airway Patent: Yes Cardiovascular Function Stable: Yes Hydration Status Stable: Yes Pain Control Satisfactory: Yes Nausea and Vomiting Control Satisfactory: Yes Mental Status Recovered: Yes Vital Signs: Last Vital Signs Temp 97.3 F 03/09/21 06:56 Pulse 60 03/09/21 06:56 Resp 16 03/09/21 06:56 BP 117/72 03/09/21 06:56 Pulse Ox 95 03/09/21 06:56
[2021-03-09] MEDS ORDERED: Ketorolac 30 MG/ML SDV IVPUSH ONE (11:38)
[2021-03-09] MEDS ORDERED: Morphine 4 MG/ML Syringe IVPUSH PRN (11:38)
[2021-03-09] MEDS ORDERED: Acetaminophen/oxyCODONE 325-5 MG Tab PO PRN (11:38)
[2021-03-09] MEDS ORDERED: Promethazine 25 MG/ML SDV IM PRN (11:38)
[2021-03-09] MEDS ORDERED: Dextrose 5%-0.45% NaCl 1,000 ML IV SCH (11:45)
--- NOTE | 2021-03-09 11:58 | PCM.OPNOTE ---
- General Post-Op/Procedure Note Date of Surgery/Procedure: 03/09/21 Operative Procedure(s): Laparoscopic assisted vaginal hysterectomy. Bilateral salphingectomy. Cystoscopy Findings: Normal sized anteverted uterus Normal appearing right ovary , left ovary with 2 cm simple cyst Very tiny endometriotic deposit in the cul-de-sac Pre Op Diagnosis: 45yo P3 with abnormal uterine bleeding. Chronic pelvic pain Post-Op Diagnosis: same. Scant Endometriosis Anesthesia Technique: General ET Tube Primary Surgeon: Mary Ellen Fields Secondary Surgeon: Casey Walton Anesthesia Provider: Jeronimo Concepcion Pathology: Uterus and bilateral tubes Fluid Replacement, Intraop: 3,000 Output, Urine Amount: 700 EBL in mLs: 200 Complications: None Condition: Good
[2021-03-09] MEDS ORDERED: Belladonna Alkaloids/Opium 16.2-30 MG Supp RECTAL ONE (13:00)
[2021-03-09] MEDS: Acetaminophen/oxyCODONE 325-5 MG Tab PO PRN ×2 (13:02→20:42)
[2021-03-09] MEDS: Ketorolac 30 MG/ML SDV IVPUSH PRN ×2 (14:17→22:57)
[2021-03-09] MEDS: Metoclopramide 10 MG/2 ML SDV IVPUSH SCH ×2 (14:18→22:36)
[2021-03-09] MEDS ORDERED: Gabapentin 300 MG Cap PO ONE (21:00)
[2021-03-10 08:31] LABS: BLOOD UREA NITROGEN,BUN 8 mg/dL (7.0-18.0); CARBON DIOXIDE,CO2 30.1 mmol/L (21.0-32.0); CHLORIDE,CL 106 mmol/L (98-107); GLUCOSE RANDOM 89 mg/dL (74-106); POTASSIUM,K 3.9 mmol/L (3.5-5.1); SODIUM,NA 143 mmol/L (136-145)
[2021-03-10 09:11] VITALS: BP 112/62; PULSE 66
[2021-03-10] MEDS: Acetaminophen/oxyCODONE 325-5 MG Tab PO PRN (09:22)
[2021-03-10] MEDS ORDERED: Enoxaparin 40 MG/0.4 ML Syringe SUBCUT ONE (10:30)
--- NOTE | 2021-03-10 10:49 | PCM.SURGPN ---
- General Info Date of Service: 03/10/21 Date of Surgery/Procedure: 03/16/21 POD#: 1 Post-Op Diagnosis: Abnormal Uterine Bleeding. Endometriosis Functional Status: Reports: Pain Controlled, Tolerating Diet, Ambulating, Urinating - Review of Systems General: Reports: No Symptoms HEENT: Reports: No Symptoms Pulmonary: Reports: No Symptoms Cardiovascular: Reports: No Symptoms Gastrointestinal: Reports: No Symptoms Genitourinary: Reports: No Symptoms Musculoskeletal: Reports: No Symptoms Skin: Reports: No Symptoms Neurological: Reports: No Symptoms Psychiatric: Reports: No Symptoms - Patient Data Vitals - Most Recent: Last Vital Signs Temp 36.3 C 03/10/21 08:00 Pulse 66 03/10/21 08:00 Resp 16 03/10/21 08:00 BP 112/62 03/10/21 08:00 Pulse Ox 94 L 03/10/21 08:00 Weight - Most Recent: 99.79 kg I&O - Last 24 Hours: Intake & Output 03/09/21 03/10/21 03/10/21 22:59 06:59 14:59 Intake Total 450 1200 Output Total 350 1700 Balance 100 -500 Lab Results Last 24 Hrs: Laboratory Results - last 24 hr 03/10/21 03/10/21 Range/Units 07:49 07:49 WBC 8.10 (4.0-11.0) K/uL RBC 4.07 L (4.30-5.90) M/uL Hgb 11.0 L (12.0-16.0) g/dL Hct 34.4 L (36.0-46.0) % MCV 84.5 (80.0-98.0) fL MCH 27.0 (27.0-32.0) pg MCHC 32.0 (31.0-37.0) g/dL RDW Std Deviation 45.0 (28.0-62.0) fl RDW Coeff of Queenie 15 (11.0-15.0) % Plt Count 194 (150-400) K/uL MPV 11.10 (7.40-12.00) fL Neut % (Auto) 69.3 (48.0-80.0) % Lymph % (Auto) 21.4 (16.0-40.0) % [place] % (Auto) 8.1 (0.0-15.0) % Eos % (Auto) 1.1 (0.0-7.0) % Baso % (Auto) 0.1 (0.0-1.5) % Neut # (Auto) 5.6 (1.4-5.7) K/uL Lymph # (Auto) 1.7 (0.6-2.4) K/uL [place] # (Auto) 0.7 (0.0-0.8) K/uL Eos # (Auto) 0.1 (0.0-0.7) K/uL Baso # (Auto) 0.0 (0.0-0.1) K/uL Nucleated RBC % 0.0 /100WBC Nucleated RBCs # 0 K/uL Sodium 143 (136-145) mmol/L Potassium 3.9 (3.5-5.1) mmol/L Chloride 106 (98-107) mmol/L Carbon Dioxide 30.1 (21.0-32.0) mmol/L BUN 8 (7.0-18.0) mg/dL Creatinine 0.8 (0.6-1.0) mg/dL Est Cr Clr Drug Dosing 74.28 mL/min Estimated GFR (MDRD) > 60.0 ml/min Glucose 89 (74-106) mg/dL Calcium 8.3 L (8.5-10.1) mg/dL Med Orders - Current: Current Medications Dextrose/Sodium Chloride (Dextrose 5%-1/2 Ns) 1,000 mls @ 125 mls/hr IV ASDIRECTED [facility] Last Infusion: 03/09/21 22:42 Dose: Infused Documented by: Ketorolac Tromethamine (Ketorolac 30 Mg/Ml Sdv) 30 mg IVPUSH Q6H PRN PRN Reason: Pain (severe 7-10) Stop: 03/14/21 11:39 Last Admin: 03/09/21 22:57 Dose: 30 mg Documented by: Morphine Sulfate (Morphine 4 Mg/Ml Syringe) 4 mg IVPUSH Q2H PRN PRN Reason: Pain (severe 7-10) Last Admin: 03/09/21 16:38 Dose: 4 mg Documented by: Ondansetron HCl (Ondansetron 4 Mg/2 Ml Sdv) 4 mg IVPUSH Q6H PRN PRN Reason: Nausea/Vomiting Last Admin: 03/09/21 13:38 Dose: 4 mg Documented by: Oxycodone/Acetaminophen (Acetaminophen/Oxycodone 325-5 Mg Tab) 1 tab PO Q4H PRN PRN Reason: Pain (moderate 4-6) Last Admin: 03/10/21 09:22 Dose: 1 tab Documented by: Oxycodone/Acetaminophen (Acetaminophen/Oxycodone 325-5 Mg Tab) 2 tab PO Q4H PRN PRN Reason: Pain (moderate 4-6) Promethazine HCl (Promethazine 25 Mg/Ml Sdv) 25 mg IM Q6H PRN PRN Reason: Nausea/Vomiting Discontinued Medications Albuterol (Albuterol 0.083% 2.5 Mg/3 Ml Neb Soln) 2.5 mg NEB ONETIME PRN PRN Reason: Wheezing Belladonna Alkaloids/Opium (Belladonna Alkaloids/Opium 16.2-30 Mg Supp) 1 supp RECTAL ONETIME ONE Stop: 03/09/21 13:01 Last Admin: 03/09/21 13:36 Dose: Not Given Documented by: Bupivacaine HCl (Bupivacaine 0.25% 10 Ml Sdv) Confirm Administered Dose 20 ml .ROUTE .STK-MED ONE Stop: 03/09/21 07:21 Cefazolin Sodium (Cefazolin 1 Gm Vial) Confirm Administered Dose 2 gm .ROUTE .STK-MED ONE Stop: 03/09/21 07:39 Droperidol (Droperidol 5 Mg/2 Ml Sdv) 0.625 mg IVPUSH ONETIME PRN PRN Reason: Nausea/Vomiting Enoxaparin Sodium (Enoxaparin 40 Mg/0.4 Ml Syringe) 40 mg SUBCUT ONETIME ONE Stop: 03/10/21 10:31 Fentanyl (Fentanyl 250 Mcg/5 Ml Sdv) Confirm Administered Dose 250 mcg .ROUTE .STK-MED ONE Stop: 03/09/21 07:05 Fentanyl (Fentanyl 100 Mcg/2 Ml Sdv) 50 mcg IVPUSH Q5M PRN PRN Reason: Pain (mild 1-3) Last Admin: 03/09/21 12:02 Dose: 50 mcg Documented by: Fluorescein Sodium (Fluorescein 5 Ml Vial) Confirm Administered Dose 5 ml .ROUTE .STK-MED ONE Stop: 03/09/21 07:20 Furosemide (Furosemide 40 Mg/4 Ml Vial) Confirm Administered Dose 40 mg .ROUTE .STK-MED ONE Stop: 03/09/21 08:20 Gabapentin (Gabapentin 300 Mg Cap) 300 mg PO ONETIME ONE Stop: 03/09/21 21:01 Last Admin: 03/09/21 20:20 Dose: 300 mg Documented by: Glycopyrrolate (Glycopyrrolate 0.2 Mg/Ml Sdv) Confirm Administered Dose 0.2 mg .ROUTE .STK-MED ONE Stop: 03/09/21 07:06 Hydromorphone HCl (Hydromorphone 2 Mg/Ml Syringe) Confirm Administered Dose 2 mg .ROUTE .STK-MED ONE Stop: 03/09/21 09:04 Hydromorphone HCl (Hydromorphone 2 Mg/Ml Syringe) 1 mg IVPUSH Q10M PRN PRN Reason: Pain (moderate 4-6) Sodium Chloride (Normal Saline) Confirm Administered Dose 20 mls @ as directed .ROUTE .STK-MED ONE Stop: 03/09/21 07:39 Acetaminophen 1,000 mg/ Premix 100 mls @ 400 mls/hr IV NOW ONE Stop: 03/09/21 09:52 Last Admin: 03/09/21 11:57 Dose: 400 mls/hr Documented by: Ketorolac Tromethamine (Ketorolac 30 Mg/Ml Sdv) Confirm Administered Dose 30 mg .ROUTE .STK-MED ONE Stop: 03/09/21 07:06 Ketorolac Tromethamine (Ketorolac 30 Mg/Ml Sdv) 30 mg IVPUSH ONETIME ONE Stop: 03/09/21 11:39 Last Admin: 03/09/21 12:30 Dose: Not Given Documented by: Lidocaine (Lidocaine 2% 5 Ml Sdv) Confirm Administered Dose 5 ml .ROUTE .STK-MED ONE Stop: 03/09/21 07:06 Methylene Blue (Methylene Blue 50 Mg/10 Ml Ampule) Confirm Administered Dose 50 mg .ROUTE .STK-MED ONE Stop: 03/09/21 07:21 Metoclopramide HCl (Metoclopramide 10 Mg/2 Ml Sdv) 10 mg IVPUSH ONETIME PRN PRN Reason: Nausea/Vomiting Metoclopramide HCl (Metoclopramide 10 Mg/2 Ml Sdv) 10 mg IVPUSH Q8H [facility] Stop: 03/09/21 22:01 Last Admin: 03/09/21 22:36 Dose: 10 mg Documented by: Midazolam HCl (Midazolam 1 Mg/Ml 2 Ml Sdv) Confirm Administered Dose 2 mg .ROUTE .STK-MED ONE Stop: 03/09/21 07:05 Miscellaneous Medication (Phenylephrine Hcl In 0.9% Nacl 1 Mg/10 Ml Syringe) Confirm Administered Dose 1 mg .ROUTE .[employer] ONE Stop: 03/09/21 08:10 Morphine Sulfate (Morphine 2 Mg/Ml Syringe) 2 mg IVPUSH Q10M PRN PRN Reason: Pain (severe 7-10) Naloxone HCl (Naloxone 0.4 Mg/Ml Syringe) 0.1 mg IVPUSH ASDIRECTED PRN PRN Reason: Respiratory Depression Ondansetron HCl (Ondansetron 4 Mg/2 Ml Sdv) Confirm Administered Dose 4 mg .ROUTE .[employer] ONE Stop: 03/09/21 07:06 Ondansetron HCl (Ondansetron 4 Mg/2 Ml Sdv) 4 mg IVPUSH ONETIME PRN PRN Reason: Nausea/Vomiting Propofol (Propofol 200 Mg/20 Ml Sdv) Confirm Administered Dose 200 mg .ROUTE .[employer] ONE Stop: 03/09/21 07:05 Rocuronium [place] (Rocuronium [place] 50 Mg/5 Ml Syringe) Confirm Administered Dose 50 mg .ROUTE .[employer] ONE Stop: 03/09/21 07:06 Rocuronium [place] (Rocuronium [place] 50 Mg/5 Ml Syringe) Confirm Administered Dose 50 mg .ROUTE .[employer] ONE Stop: 03/09/21 08:33 Scopolamine (Scopolamine 1.5 Mg Transdermal Patch) Confirm Administered Dose 1.5 mg .ROUTE .[employer] ONE Stop: 03/09/21 06:57 Last Admin: 03/09/21 12:30 Dose: Not Given Documented by: Sugammadex Sodium (Sugammadex Sodium 200 Mg/2 Ml Vial) Confirm Administered Dose 200 mg .ROUTE .[employer] ONE Stop: 03/09/21 07:06 Vasopressin (Vasopressin 20 Units/1 Ml Mdv) Confirm Administered Dose 20 units .ROUTE .[employer] ONE Stop: 03/09/21 08:16 - Exam Wound/Incisions: Dressing Dry and Intact General: Alert Neck: Supple Lungs: Clear to Auscultation Cardiovascular: Regular Rate, Regular Rhythm GI/Abdominal Exam: Normal Bowel Sounds Extremities: Normal Inspection Neurological: No New Focal Deficit Sepsis Event Note - Evaluation Sepsis Screening Result: No Definite Risk - Focused Exam Vital Signs: Vital Signs Temp Pulse Resp BP Pulse Ox 03/10/21 08:00 36.3 C 66 16 112/62 94 L 03/10/21 04:30 36.8 C 67 19 105/63 93 L 03/09/21 23:09 37 C 78 18 115/67 94 L - Problem List & Annotations (1) Status post hysterectomy SNOMED Code(s): 904292034, 929375465, 031264428 Code(s): Z90.710 - ACQUIRED ABSENCE OF BOTH CERVIX AND UTERUS Status: Acute Current Visit: Yes - Problem List Review Problem List Initiated/Reviewed/Updated: Yes - My Orders Last 24 Hours: Active Orders 24 hr Category Date Time Status Patient Status [ADT] Routine ADT 03/09/21 11:39 Active Antiembolic Devices [RC] PER UNIT ROUTINE Care 03/09/21 11:41 Active Notify Provider Intake and Out [RC] ASDIRECTED Care 03/09/21 11:39 Active Notify Provider Vital Signs [RC] ASDIRECTED Care 03/09/21 11:39 Active RT Incentive Spirometry [RC] Q2HWA Care 03/09/21 11:39 Active Ready for Discharge [RC] PER UNIT ROUTINE Care 03/10/21 10:41 Ordered Up With Assistance [RC] PER UNIT ROUTINE Care 03/09/21 11:39 Active Up ad Tiffanie [RC] PER UNIT ROUTINE Care 03/09/21 11:39 Active Urinary Catheter Removal [RC] Per Unit Routine Care 03/09/21 11:39 Active Vital Signs [RC] PER UNIT ROUTINE Care 03/09/21 11:39 Active Regular Diet [DIET] Diet 03/09/21 Dinner Active Acetaminophen/oxyCODONE [Percocet 325-5 MG] Med 03/09/21 11:38 Active 1 tab PO Q4H PRN Acetaminophen/oxyCODONE [Percocet 325-5 MG] Med 03/09/21 11:38 Active 2 tab PO Q4H PRN Dextrose 5%-0.45% NaCl [Dextrose 5%-1/2 NS] 1,000 ml Med 03/09/21 11:45 Active IV ASDIRECTED Ketorolac [Toradol] Med 03/09/21 11:38 Active 30 mg IVPUSH Q6H PRN Morphine Med 03/09/21 11:38 Active 4 mg IVPUSH Q2H PRN Ondansetron [Zofran] Med 03/09/21 11:38 Active 4 mg IVPUSH Q6H PRN Promethazine [Phenergan] Med 03/09/21 11:38 Active 25 mg IM Q6H PRN Peripheral IV Discontinue [OM.PC] Routine Oth 03/09/21 11:39 Ordered Sequential Compression Device [OM.PC] Per Unit Routine Oth 03/09/21 11:39 Ordered Resuscitation Status Routine Resus Stat 03/09/21 11:38 Ordered Medication Orders Dextrose/Sodium Chloride (Dextrose 5%-1/2 Ns) 1,000 mls @ 125 mls/hr IV ASDIRECTED [facility] Last Infusion: 03/09/21 22:42 Dose: 125 mls/hr Documented by: Admin: 03/09/21 12:25 Dose: 125 mls/hr Documented by: JUAN DANIEL Ketorolac Tromethamine (Ketorolac 30 Mg/Ml Sdv) 30 mg IVPUSH Q6H PRN PRN Reason: Pain (severe 7-10) Stop: 03/14/21 11:39 Last Admin: 03/09/21 22:57 Dose: 30 mg Documented by: Admin: 03/09/21 14:17 Dose: 30 mg Documented by: CHERY Morphine Sulfate (Morphine 4 Mg/Ml Syringe) 4 mg IVPUSH Q2H PRN PRN Reason: Pain (severe 7-10) Last Admin: 03/09/21 16:38 Dose: 4 mg Documented by: CHERY Ondansetron HCl (Ondansetron 4 Mg/2 Ml Sdv) 4 mg IVPUSH Q6H PRN PRN Reason: Nausea/Vomiting Last Admin: 03/09/21 13:38 Dose: 4 mg Documented by: JUAN DANIEL Oxycodone/Acetaminophen (Acetaminophen/Oxycodone 325-5 Mg Tab) 1 tab PO Q4H PRN PRN Reason: Pain (moderate 4-6) Last Admin: 03/10/21 09:22 Dose: 1 tab Documented by: Admin: 03/09/21 20:42 Dose: 1 tab Documented by: Admin: 03/09/21 13:02 Dose: 1 tab Documented by: JUAN DANIEL Oxycodone/Acetaminophen (Acetaminophen/Oxycodone 325-5 Mg Tab) 2 tab PO Q4H PRN PRN Reason: Pain (moderate 4-6) Promethazine HCl (Promethazine 25 Mg/Ml Sdv) 25 mg IM Q6H PRN PRN Reason: Nausea/Vomiting - Assessment Assessment (Free Text/Narrative):: 45yo P3 s/p LAVH/BS with aspiration of left ovarian cyst , POD1 She denies any complains , she has voided 3 times, ambulating , voiding and tolerating regular diet U/O : 1700 in 12hrs Labs CBC: 8< 11/34>194 Cr 0.8 She had good pain control - Plan Plan (Free Text/Narrative):: Discharge home today Nothing in vagina for 6 weeks No heavy lifting Incentive spirometry Pain control as needed Lovenox 40mg X 1 dose
--- NOTE | 2021-03-11 12:24 | OR ---
SURGEON: LARRY SOW DATE OF PROCEDURE: 03/10/2021 PREOPERATIVE DIAGNOSES: A 45-year-old para 3 with abnormal uterine bleeding and chronic pelvic pain. POSTOPERATIVE DIAGNOSES: Abnormal uterine bleeding and endometriosis. ESTIMATED BLOOD LOSS: 200. INTRAVENOUS FLUIDS: 3000. URINE OUTPUT: 700. PROCEDURES: 1. Laparoscopic-assisted vaginal hysterectomy. 2. Bilateral salpingectomy. 3. Aspiration of left ovarian cyst. ANESTHESIA: General. BOTTLE SELECTOR: Dr. Walton. COMPLICATIONS: None. NOTES AND FINDINGS: Normal-sized anteverted uterus. Normal-appearing right ovary. Left ovary with 2 cm simple cyst. Very tiny endometriotic deposits noted in the cul-de-sac. Pathology was uterus and bilateral tubes. To note, the bilateral tubes with evidence of tubal ligation done. BRIEF HISTORY ABOUT THE PATIENT: She is a 45-year-old para 3 who was seen because of abnormal uterine bleeding. Initially, she had a saline ultrasound done, which showed an endometrial polyp. She was taken to the operating room. Endometrial polyp was removed. However, the patient was still complaining of heavy bleeding after which at this point she desired definitive treatment for abnormal bleeding. She complained about left-sided pelvic pain, which was constant and she wanted to know the cause of her left pelvic pain. As a result, she was consented for laparoscopic-assisted vaginal hysterectomy and bilateral salpingectomy and all other indicated procedures. She was explained the risks, benefits, and alternatives and she wished to proceed. DESCRIPTION OF PROCEDURE: The patient was taken to the operating room where she was placed in the dorsal lithotomy position with Giovanni stirrups. She was prepared and draped in the normal sterile fashion. A Epps catheter was placed. A speculum was used to expose the cervix after being prepped, and the anterior lip of the cervix was clamped with Allis clamps. The cervix was dilated to accommodate the uterine manipulator, which was introduced. Attention was then placed to the abdomen. A 0.25% Marcaine was infiltrated into the subumbilical fold, and a 5 mm incision was made. The abdomen was entered via direct entry with fiberoptic trocar. Pneumoperitoneum was obtained to 15 mmHg. Then, the right and left lower quadrant incisions were made 2 fingerbreadths above and superior to the anterior superior iliac spine. Then, a 5 mm trocar with balloon was placed with direct entry via direct visualization. The patient was placed in the Trendelenburg position. The uterus was elevated with the aid of the uterine manipulator. The bilateral ureters were identified. The bowel was retracted out of the operative field with the aid of LigaSure device. The fallopian tubes were then coagulated and cut all the way to the level of the cornua. The round ligament was also transected. The broad ligament was entered, and the bladder flap was created. Prior to this, the ovarian ligament was coagulated and cut to separate the ovaries from the uterus. The bladder flap was created with LigaSure device. The uterine vessel was skeletonized. It was coagulated and cut. The same was done on the left side, and the bladder flap was created. Fallopian tube that was transected all the way to the cornua. Round ligament was also transected. Uterine vessels were also coagulated. Bladder flap was completed on the opposite side. Then, attention was placed to the vagina where the cervix was again exposed with the aid of the weighted speculum and right angle retractor. The cervicovaginal junction was infiltrated with 12 mL of 20 units of Pitressin diluted in 50 mL of normal saline. Then, a circumferential incision was made at the cervicovaginal junction with the Bovie. The posterior cul-de-sac was entered in sharply with the Prakash scissors. A long weighted speculum was placed into the posterior cul-de-sac. Anterior colpotomy was then made with careful dissection of the vesicouterine plane to reach the peritoneum. A right angle retractor was then placed in the vesicouterine space on the right. With a Velia clamp, the uterosacral was clamped, cut, and suture ligated with 2-0 Vicryl. Subsequently, the cardinal ligament was also clamped, cut, and suture ligated with 2-0 Vicryl. These steps were repeated on the left side. With this, the uterus was detached from supporting ligament. It was removed from the vagina. The pedicles were inspected, noted to be hemostatic. The posterior wall was then suspended to the uterosacral ligament. Then, the vaginal colpotomy was closed with 0 Polysorb. A cystoscopy was done. Bilateral ureteral jets were noted. The bladder was noted to be intact. Attention was then paid to the abdomen. The incision was inspected and noted to be hemostatic. All instrument and pad counts were correct x2. In the abdomen, the cyst on the left side was deflated with the aid of biopsy forceps. Clear fluid was noted, and after the instruments were removed, pneumoperitoneum was obtained to 5 mmHg. Hemostasis was still noted. Trocars were removed under direct visualization. Laparoscopy incision was closed with 3-0 Monocryl. The patient tolerated the procedure well and was taken to recovery room in stable condition. DIEGO / OLIVIA /[id number] MTDD
== END 2021-03-10 11:31 | disposition home or self-care (01) ==
LOC: MW.SDS 06:43 → MW.MS 11:30 → MW.SDS 03-10 11:31
PROVIDERS: ATTEND Obstetrics & Gynecology
DX: D25.9 Leiomyoma of uterus, unspecified (principal); N93.9 Abnormal uterine and vaginal bleeding, unspecified; N80.0 Endometriosis of uterus; N83.292 Other ovarian cyst, left side; E78.00 Pure hypercholesterolemia, unspecified; I10 Essential (primary) hypertension; J45.909 Unspecified asthma, uncomplicated; E03.9 Hypothyroidism, unspecified; E66.9 Obesity, unspecified; Z68.38 Body mass index [BMI] 38.0-38.9, adult; Z88.8 Allergy status to other drugs, medicaments and biological substances; Z87.442 Personal history of urinary calculi; Z79.899 Other long term (current) drug therapy; Z79.890 Hormone replacement therapy
CPT/HCPCS: 36415; 51702; 58552; 80048; 84703; 85025; 86850; 86900; 86901; A9270; J0131; J0690; J1885; J1940; J2250; J2270; J2370; J2405; J2704; J2765; J3010; J3490; J7042; 00944; 88309; J1170